=== PATIENT | male | born 1985 | race Caucasian/White ===

== ENCOUNTER 2018-04-02 17:06 | Inpatient (IN) | payer MEDICAID ==
[~2018-04-02] VITALS: Ht 180.3 cm; Wt 77.6 kg
[2018-04-02 19:39] LABS: BASOPHILS % (AUTO) 0.4 % (0.0-2.0); EOSINOPHILS % (AUTO) 3.1 % (1.0-6.0); HEMATOCRIT 41.9 % (41-53); HEMOGLOBIN 14.7 g/dL (13.5-17.5); LYMPHOCYTES # (AUTO) 2.3 K/uL (1.0-4.8); LYMPHOCYTES % (AUTO) 23.3 % (22.0-44.0); MEAN CORPUSCULAR HEMOGLOBIN 30.6 pg (26.0-34.0); MEAN CORPUSCULAR VOLUME 87 fL (80-100); MONOCYTES # (AUTO) 0.7 K/uL (0.1-1.0); MONOCYTES % (AUTO) 7.4 % (2.0-9.0); NEUTROPHILS # (AUTO) 6.6 K/uL (1.8-7.7); NEUTROPHILS % (AUTO) 65.8 % (40.0-70.0); PLATELET COUNT (AUTO) 245 K/uL (150-450); RED CELL DISTRIBUTION WIDTH 13.2 % (11.5-14.5)
[2018-04-02] MEDS ORDERED: LORazepam 2 MG TABLET PO ONE (19:45)
[2018-04-02] MEDS ORDERED: HALOPERIDOL 5 MG TABLET PO ONE (19:45)
[2018-04-02 19:50] LABS: ANION GAP 10 mmol/L (8-16); CALCIUM, TOTAL 8.5 mg/dL (8.8-10.5); CARBON DIOXIDE 26 mmol/L (22-29); CHLORIDE 103 mmol/L (98-107); CREATININE 1.02 mg/dL (0.60-1.30); GLOMERULAR FILTR. RATE CALC > 60 mL/min (>60); GLUCOSE,RANDOM 89 mg/dL (70-110); POTASSIUM 3.8 mmol/L (3.5-5.1); SODIUM SERUM 139 mmol/L (136-145); UREA NITROGEN, BLOOD 5 mg/dL (7-18)
[2018-04-02 19:56] LABS: ALANINE AMINOTRANSFERASE 42 U/L (12-78); ALBUMIN 3.5 g/dL (3.4-5.0); ALKALINE PHOSPHATASE 104 U/L (46-116); ASPARTATE AMINOTRANSFERASE 43 U/L (15-37); BILIRUBIN,TOTAL 0.3 mg/dL (0.1-1.0); TOTAL PROTEIN, SERUM 6.8 g/dL (6.4-8.2)
[2018-04-02] MEDS ORDERED: ZOLPIDEM TARTRATE 10 MG TABLET PO PRN (20:30)
[2018-04-02 20:49] LABS: APPEARANCE,URINE CLOUDY (CLEAR); BILIRUBIN,URINE NEGATIVE (NEGATIVE); GLUCOSE, URINE (UA) NEGATIVE (NEGATIVE); KETONES,URINE TRACE mg/dL (NEGATIVE); LEUKOCYTE ESTERASE ,URINE NEGATIVE (NEGATIVE); NITRATE,URINE NEGATIVE (NEGATIVE); OCCULT BLOOD,URINE NEGATIVE (NEGATIVE); PROTEIN,URINE NEGATIVE (NEGATIVE); UROBILINOGEN,URINE 0.2 mg/dL (<=1.0)
[2018-04-02 20:57] LABS: AMPHET/METH SCREEN,URINE NEGATIVE (NEGATIVE); BARBITURATE SCREEN, URINE NEGATIVE (NEGATIVE); BENZODIAZEPINES SCREEN,URINE NEGATIVE (NEGATIVE); CANNABINOID SCREEN,URINE NEGATIVE (NEGATIVE); COCAINE SCREEN,URINE NEGATIVE (NEGATIVE); METHADONE SCREEN, URINE NEGATIVE (NEGATIVE); OPIATE SCREEN,URINE NEGATIVE (NEGATIVE); PHENCYCLIDINE SCREEN,URINE NEGATIVE (NEGATIVE)
[2018-04-03 00:23] VITALS: BP 118/61
[2018-04-03 08:40] VITALS: BP 103/72
[2018-04-03 09:33] LABS: CHOL/HDL RATIO 2.2 (4.2-7.3)
[2018-04-03 16:04] VITALS: BP 110/70
[2018-04-04 00:50] VITALS: BP 113/68
[2018-04-04] MEDS: HALOPERIDOL 5 MG TABLET PO PRN (00:52)
[2018-04-04] MEDS: LORazepam 2 MG TABLET PO PRN ×3 (00:52→18:11)
[2018-04-04 08:19] VITALS: BP 123/74
[2018-04-04] MEDS: FLUoxetine HCL 20 MG CAPSULE PO SCH (08:23)
[2018-04-04 16:16] VITALS: BP 111/62
[2018-04-05 05:07] VITALS: BP 120/86
[2018-04-05 08:38] VITALS: BP 114/75
[2018-04-05] MEDS: FLUoxetine HCL 20 MG CAPSULE PO SCH (09:00)
[2018-04-05] MEDS: NICOTINE 14 MG/24 HOUR PATCH TD SCH (12:07)
[2018-04-05] MEDS: LORazepam 2 MG TABLET PO PRN (15:34)
[2018-04-05] MEDS: HALOPERIDOL 5 MG TABLET PO PRN (15:34)
[2018-04-05 15:58] VITALS: BP 134/78
[2018-04-05 16:08] VITALS: BP 134/78
[2018-04-06 00:05] VITALS: BP 121/68
[2018-04-06] MEDS: NICOTINE 14 MG/24 HOUR PATCH TD SCH (08:19)
[2018-04-06] MEDS: FLUoxetine HCL 20 MG CAPSULE PO SCH (08:19)
[2018-04-06 08:26] VITALS: BP 114/67
[2018-04-06] MEDS: HALOPERIDOL 5 MG TABLET PO PRN (15:59)
[2018-04-06] MEDS: LORazepam 2 MG TABLET PO PRN (15:59)
[2018-04-06 16:01] VITALS: BP 130/74
[2018-04-07 06:07] VITALS: BP 110/62
[2018-04-07] MEDS: FLUoxetine HCL 20 MG CAPSULE PO SCH (08:07)
[2018-04-07 08:08] VITALS: BP 116/74
[2018-04-07] MEDS: NICOTINE 14 MG/24 HOUR PATCH TD SCH (08:08)
[2018-04-07] MEDS: LORazepam 2 MG TABLET PO PRN ×2 (09:09→16:40)
[2018-04-07 16:06] VITALS: BP 137/66
[2018-04-08 00:14] VITALS: BP 110/68
[2018-04-08 08:15] VITALS: BP 132/81
[2018-04-08] MEDS: FLUoxetine HCL 20 MG CAPSULE PO SCH (08:46)
[2018-04-08] MEDS: NICOTINE 14 MG/24 HOUR PATCH TD SCH (08:47)
[2018-04-08] MEDS ORDERED: QUEtiapine FUMARATE 100 MG TABLET PO ONE (11:30)
[2018-04-08] MEDS: LORazepam 2 MG TABLET PO PRN (16:03)
[2018-04-08] MEDS: QUEtiapine FUMARATE 100 MG TABLET PO SCH (16:03)
[2018-04-08 16:30] VITALS: BP 115/80
[2018-04-09 04:42] VITALS: BP 120/82
[2018-04-09 08:00] VITALS: BP 133/67
[2018-04-09] MEDS: FLUoxetine HCL 20 MG CAPSULE PO SCH (08:19)
[2018-04-09] MEDS: NICOTINE 14 MG/24 HOUR PATCH TD SCH (08:20)
[2018-04-09] MEDS: QUEtiapine FUMARATE 100 MG TABLET PO SCH ×2 (08:20→16:16)
[2018-04-09] MEDS: LORazepam 2 MG TABLET PO PRN (08:20)
[2018-04-09 16:05] VITALS: BP 116/65
[2018-04-10 01:04] VITALS: BP 120/72
[2018-04-10] MEDS: HALOPERIDOL 5 MG TABLET PO PRN (01:49)
[2018-04-10] MEDS: LORazepam 2 MG TABLET PO PRN ×2 (01:50→08:45)
[2018-04-10] MEDS: NICOTINE 14 MG/24 HOUR PATCH TD SCH (08:37)
[2018-04-10] MEDS: QUEtiapine FUMARATE 100 MG TABLET PO SCH ×2 (08:37→16:07)
[2018-04-10] MEDS: FLUoxetine HCL 20 MG CAPSULE PO SCH (08:37)
[2018-04-10 08:51] VITALS: BP 116/65
[2018-04-10 16:09] VITALS: BP 109/66
[2018-04-11 05:12] VITALS: BP 121/68
[2018-04-11 08:16] VITALS: BP 119/68
[2018-04-11] MEDS: FLUoxetine HCL 20 MG CAPSULE PO SCH (08:53)
[2018-04-11] MEDS: NICOTINE 14 MG/24 HOUR PATCH TD SCH (08:53)
[2018-04-11] MEDS: QUEtiapine FUMARATE 100 MG TABLET PO SCH ×2 (08:53→16:05)
[2018-04-11] MEDS: LORazepam 2 MG TABLET PO PRN (15:49)
[2018-04-11 16:02] VITALS: BP 124/65
[2018-04-12 01:28] VITALS: BP 118/85
[2018-04-12 08:36] VITALS: BP 112/64
[2018-04-12] MEDS: QUEtiapine FUMARATE 100 MG TABLET PO SCH ×2 (09:27→16:32)
[2018-04-12] MEDS: FLUoxetine HCL 20 MG CAPSULE PO SCH (09:27)
[2018-04-12] MEDS: NICOTINE 14 MG/24 HOUR PATCH TD SCH (09:28)
[2018-04-12 16:19] VITALS: BP 116/62
[2018-04-12] MEDS: LORazepam 2 MG TABLET PO PRN (17:23)
[2018-04-13 04:46] VITALS: BP 121/62
[2018-04-13 08:00] VITALS: BP 112/68
[2018-04-13] MEDS: FLUoxetine HCL 20 MG CAPSULE PO SCH (08:50)
[2018-04-13] MEDS: NICOTINE 14 MG/24 HOUR PATCH TD SCH (08:50)
[2018-04-13] MEDS: QUEtiapine FUMARATE 100 MG TABLET PO SCH (08:50)
[2018-04-13] MEDS: LORazepam 2 MG TABLET PO PRN (09:16)
[2018-04-13] MEDS ORDERED: FLUO-191 PO (13:18)
[2018-04-13] MEDS ORDERED: QUET100T PO (13:18)
== END 2018-04-13 14:30 | disposition home or self-care (01) | DRG 753 ==
LOC: EMS 17:07 → B2S 21:00
PROVIDERS: ADMIT Psychiatry & Neurology Child & Adolescent Psychiatry; ATTEND Psychiatry & Neurology Child & Adolescent Psychiatry
DX: F31.4 Bipolar disorder, current episode depressed, severe, without psychotic features (principal); F10.10 Alcohol abuse, uncomplicated; F41.9 Anxiety disorder, unspecified; R74.0 Nonspecific elevation of levels of transaminase and lactic acid dehydrogenase [LDH]; F19.10 Other psychoactive substance abuse, uncomplicated; F17.210 Nicotine dependence, cigarettes, uncomplicated; Z79.899 Other long term (current) drug therapy; Z71.41 Alcohol abuse counseling and surveillance of alcoholic; Z71.51 Drug abuse counseling and surveillance of drug abuser
CPT/HCPCS: 99285; G0480

== ENCOUNTER 2018-04-18 10:44 | Emergency (ER) | payer MEDICAID, OTHER ==
[~2018-04-18] VITALS: Ht 180.3 cm; Wt 81.8 kg
[~2018-04-18 10:44] MED LIST: FLUO-191 PO; QUET100T PO
[2018-04-18] MEDS ORDERED: LORA0.5T2 PO (10:58)
[2018-04-18] MEDS ORDERED: ZOLP5 PO (10:58)
[2018-04-18 11:19] LABS: BASOPHILS % (AUTO) 0.4 % (0.0-2.0); EOSINOPHILS % (AUTO) 1.7 % (1.0-6.0); HEMATOCRIT 43.5 % (41-53); LYMPHOCYTES # (AUTO) 1.8 K/uL (1.0-4.8); MEAN CORPUSCULAR HEMOGLOBIN 30.9 pg (26.0-34.0); MEAN CORPUSCULAR HGB CONC 34.4 G/dL (31.0-37.0); MEAN CORPUSCULAR VOLUME 90 fL (80-100); MONOCYTES # (AUTO) 0.5 K/uL (0.1-1.0); MONOCYTES % (AUTO) 7.9 % (2.0-9.0); NEUTROPHILS # (AUTO) 4.2 K/uL (1.8-7.7); PLATELET COUNT (AUTO) 229 K/uL (150-450); RED BLOOD CELL COUNT(AUTO) 4.84 MIL/uL (4.50-5.90); RED CELL DISTRIBUTION WIDTH 13.8 % (11.5-14.5)
[2018-04-18 11:26] LABS: ANION GAP 6 mmol/L (8-16); CALCIUM, TOTAL 8.7 mg/dL (8.8-10.5); CARBON DIOXIDE 30 mmol/L (22-29); CHLORIDE 104 mmol/L (98-107); CREATININE 0.89 mg/dL (0.60-1.30); GLOMERULAR FILTR. RATE CALC > 60 mL/min (>60); GLUCOSE,RANDOM 90 mg/dL (70-110); SODIUM SERUM 140 mmol/L (136-145); UREA NITROGEN, BLOOD 5 mg/dL (7-18)
[2018-04-18 11:34] LABS: ALANINE AMINOTRANSFERASE 25 U/L (12-78); ALBUMIN 3.7 g/dL (3.4-5.0); ALKALINE PHOSPHATASE 108 U/L (46-116); ASPARTATE AMINOTRANSFERASE 24 U/L (15-37); BILIRUBIN,TOTAL 0.7 mg/dL (0.1-1.0); TOTAL PROTEIN, SERUM 7.2 g/dL (6.4-8.2)
[2018-04-18 15:21] LABS: AMPHET/METH SCREEN,URINE NEGATIVE (NEGATIVE); BARBITURATE SCREEN, URINE NEGATIVE (NEGATIVE); BENZODIAZEPINES SCREEN,URINE NEGATIVE (NEGATIVE); CANNABINOID SCREEN,URINE NEGATIVE (NEGATIVE); COCAINE SCREEN,URINE NEGATIVE (NEGATIVE); METHADONE SCREEN, URINE NEGATIVE (NEGATIVE); OPIATE SCREEN,URINE NEGATIVE (NEGATIVE)
[2018-04-18 15:23] LABS: PHENCYCLIDINE SCREEN,URINE NEGATIVE (NEGATIVE)
[2018-04-18 15:41] VITALS: BP 107/55
== END 2018-04-18 15:57 | disposition home or self-care (01) ==
LOC: EMS 10:46
DX: F31.9 Bipolar disorder, unspecified (principal); F41.9 Anxiety disorder, unspecified; F17.210 Nicotine dependence, cigarettes, uncomplicated
CPT/HCPCS: 36415; 80053; 80307; 85025; 99284; 99406; G0480